=== PATIENT | female | born 1960 | race Caucasian/White ===

== ENCOUNTER → 2016-10-01 | Outpatient (CLI) | payer MEDICARE ==
[~2016-10-01] MED LIST: ARTHROTEC 775 MG/TAB PO; CYMBALTA 20MG20 MG PO; CYMBALTA 30MG30 MG PO; DARVOCET N; FLEXERIL; FLEXERIL 1010 MG/TAB PO; FLEXERIL5 MG PO; IBUPROFEN 200200 MG PO; LORTAB 7.5/5001 TAB; MOTRIN 800800 MG/TAB PO; NORCO 325 MG-51 TAB PO; NORCO PO; PERCOCET 325 MG1 TA2 PO; PHENERGAN W/CO120 M1 PO; [UNRECOGNIZED DRUG - OTHER]
== END ==
LOC: MC.RAD 09:58
DX: R92.1 Mammographic calcification found on diagnostic imaging of breast (principal)

== ENCOUNTER 2017-02-25 21:15 | Emergency (ER) | payer MEDICARE ==
[~2017-02-25] VITALS: Ht 157.5 cm; Wt 69.5 kg
[2017-02-25 21:18] VITALS: BP 141/74; TEMP 98.1
[2017-02-25] MEDS ORDERED: WELLBUTRIN SR150 M1 PO (21:23)
[2017-02-25 22:33] VITALS: PULSE 89
== END 2017-02-25 22:34 | disposition home or self-care (01) ==
LOC: COL.ER 21:15
DX: S39.012A Strain of muscle, fascia and tendon of lower back, initial encounter (principal); F32.9 Major depressive disorder, single episode, unspecified; F17.210 Nicotine dependence, cigarettes, uncomplicated; X50.0XXA Overexertion from strenuous movement or load, initial encounter

== ENCOUNTER 2017-07-03 17:48 | Emergency (ER) | payer MEDICARE ==
[~2017-07-03] VITALS: Ht 157.5 cm; Wt 69.5 kg
[~2017-07-03 17:48] MED LIST changes: +CEPHALEXIN500 M1 PO; +WELLBUTRIN SR150 M1 PO
[2017-07-03 17:51] VITALS: BP 132/68; TEMP 100.4
[2017-07-03] MEDS ORDERED: TAMIFLU 75MG75 MG PO (19:11)
[2017-07-03 19:26] VITALS: PULSE 110
== END 2017-07-03 19:26 | disposition home or self-care (01) ==
LOC: COL.ER 17:48
DX: J11.1 Influenza due to unidentified influenza virus with other respiratory manifestations (principal); F17.210 Nicotine dependence, cigarettes, uncomplicated

== ENCOUNTER → 2018-01-14 | Outpatient (CLI) | payer MEDICARE ==
[~2018-01-14] MED LIST changes: +TAMIFLU 75MG75 MG PO
== END ==
LOC: MC.RAD 08:58
DX: Z12.31 Encounter for screening mammogram for malignant neoplasm of breast (principal)

== ENCOUNTER 2019-01-01 15:33 | Emergency (ER) | payer MEDICARE ==
[~2019-01-01] VITALS: Ht 157.5 cm; Wt 72.7 kg
[2019-01-01 15:37] VITALS: TEMP 97.8
[2019-01-01 16:02] LABS: COLLECTION METHOD CLEAN CATCH
[2019-01-01 16:13] LABS: PH 5 (5-8); URINE APPEARANCE Cloudy; URINE BACTERIA Rare /hpf; URINE BILIRUBIN Negative (NEGATIVE); URINE BLOOD 3+ (NEGATIVE); URINE COLOR Yellow; URINE GLUCOSE Negative (NEGATIVE); URINE KETONE Negative (NEGATIVE); URINE LEUKOCYTE ESTERASE 2+ (NEGATIVE); URINE NITRATE Positive (NEGATIVE); URINE PROTEIN(semi-quant) 2+ (NEGATIVE); URINE RBC >50 /hpf; URINE UROBILINOGEN Negative (NEGATIVE)
[2019-01-01] MEDS ORDERED: DIFLUCAN150 MG PO (16:14)
[2019-01-01] MEDS ORDERED: CEFTIN500 MG PO (16:33)
[2019-01-01] MEDS ORDERED: PYRIDIUM200 M1 PO (16:33)
[2019-01-01 18:00] VITALS: BP 120/81; PULSE 74
== END 2019-01-01 18:00 | disposition home or self-care (01) ==
LOC: COL.ER 15:33
PROVIDERS: Emergency Medicine
DX: N30.90 Cystitis, unspecified without hematuria (principal); F17.210 Nicotine dependence, cigarettes, uncomplicated
CPT/HCPCS: J0696

== ENCOUNTER 2021-07-16 08:30 | Day surgery (SDC) | payer MEDICARE ==
[~2021-07-16] VITALS: Ht 157.5 cm; Wt 76.5 kg
[~2021-07-16 08:30] MED LIST changes: +CEFTIN500 MG PO; +DIFLUCAN150 MG PO; +PYRIDIUM200 M1 PO
[2021-07-16] MEDS ORDERED: PREMARIN VAG42.5 GM VG (08:49)
[2021-07-16 08:50] VITALS: BP 132/87; PULSE 82; TEMP 97.4
--- NOTE | 2021-07-16 10:07 | NUR ---
PATIENT TRANSPORTED PER CART FROM GI SUITE TO BAY 4 ACCOMPANIED BY ENDO RN. PATIENT AMBULATED FROM CART TO CHAIR WITH STEADY GAIT AND 2 ASSIST. MONITORS APPLIED. VSS ON ROOM AIR. PATIENT FAMILY IN ROOM. PATIENT TALKS WITH FAMILY. VERBAL REPORT RECEIVED.
[2021-07-16 10:15] VITALS: BP 116/67; PULSE 73
--- NOTE | 2021-07-16 10:15 | NUR ---
VSS ON ROOM AIR. PATIENT TOLERATES COFFEE AND MUFFIN WITHOUT PROBLEMS. PATIENT DENIES DISCOMFORT AND NAUSEA. DR HARTMAN SPEAKS WITH PATEINT AND FAMILY MEMBER
[2021-07-16 10:30] VITALS: BP 98/58; PULSE 72
--- NOTE | 2021-07-16 10:30 | NUR ---
VSS ON ROOM AIR. PATIENT TALKS WITH FAMILY MEMBER. DENIES DISCOMFORT AND NAUSEA.,
[2021-07-16 10:39] VITALS: TEMP 97.1
[2021-07-16 10:45] VITALS: BP 101/64; PULSE 79
--- NOTE | 2021-07-16 10:45 | NUR ---
VSS ON ROOM AIR. PATEINT STATES SHE IS READY TO GO HOME. 1035 IV DC'D WITH CATHETER TIP INTACT. PRESSURE AND BANDAGE APPLIED. 1038 DISCHARGE INSTRUCTIONS GIVEN VERBAL AND DISCHARGE PACKET PROVIDED. QUESTIONS ANSWERED AND PATIENT VOICED UNDERSTANDING. PATIENT CHANGES INTO STREET CLOTHES. 1045 PATIENT DISCHARGED PER WHEEL CHAIR ACCOMPANIED BY AMB RN TO PRIVATE VECHILE DRIVEN BY FAMILY MEMBER.
== END 2021-07-16 10:45 | disposition home or self-care (01) ==
LOC: SDCO 08:30
DX: Z12.11 Encounter for screening for malignant neoplasm of colon (principal); K57.30 Diverticulosis of large intestine without perforation or abscess without bleeding; K64.1 Second degree hemorrhoids
CPT/HCPCS: J2405; J2704; J7120

== ENCOUNTER → 2021-08-19 | Outpatient (CLI) | payer MEDICARE ==
[~2021-08-19] MED LIST changes: +PREMARIN VAG42.5 GM VG
== END ==
LOC: MC.RAD 10:00
DX: Z12.31 Encounter for screening mammogram for malignant neoplasm of breast (principal)

== ENCOUNTER 2023-05-21 15:30 | Emergency (ER) | payer MEDICARE ==
[~2023-05-21] VITALS: Ht 157.5 cm; Wt 75.0 kg
[2023-05-21 15:36] VITALS: TEMP 97.7
[2023-05-21 16:02] LABS: BASO % 0.4 % (0.0-2.0); EOS # 0.3 K/mm3 (0.0-0.7); EOS % 2.9 % (0.0-4.0); GRAN # 5.6 K/mm3 (1.4-6.5); GRAN % 61.7 % (42.2-75.2); HEMATOCRIT 43.8 % (37.0-47.0); HEMOGLOBIN 14.3 g/dl (12.5-16.0); LYMPH # 2.5 K/mm3 (1.2-3.4); LYMPH % 27.3 % (20.0-51.0); MEAN CELL VOLUME 94 fl (80.0-100.0); MEAN CORPUSCULAR HEMOGLOBIN 31 pg (27-31); MEAN CORPUSCULAR HGB CONC 33 g/dl (33.0-37.0); MEAN PLATELET VOLUME 9.2 fl (7.4-10.4); MONO # 0.7 K/mm3 (0.1-0.6); MONO % 7.5 % (1.7-9.3); PLATELET COUNT 264 K/mm3 (130-400); RED BLOOD COUNT 4.68 M/mm3 (4.10-5.30); REDCELL DISTRIBUTION WIDTH-CV 12.9 % (11.5-14.5)
[2023-05-21 16:09] LABS: ALBUMIN 3.7 gm/dL (3.4-4.8); BILIRUBIN,TOTAL 0.4 mg/dL (0.2-1.2); CALCIUM 9.4 mg/dL (8.4-10.2); CREATININE, serum 0.81 mg/dL (0.57-1.11); POTASSIUM 4.1 mmol/L (3.5-4.5); TOTAL PROTEIN 7.2 gm/dL (6.2-8.1)
[2023-05-21 16:38] LABS: COLLECTION METHOD CLEAN CATCH
[2023-05-21 17:35] LABS: URINE APPEARANCE Hazy (CLEAR/HAZY); URINE BLOOD 3+ (NEGATIVE); URINE COLOR Yellow (YELLOW); URINE GLUCOSE Negative (NEGATIVE); URINE KETONE Negative (NEGATIVE); URINE NITRATE Negative (NEGATIVE); URINE PROTEIN(semi-quant) Negative (NEGATIVE); URINE UROBILINOGEN 0.2 E.U/dL (0.2-1.0)
[2023-05-21] MEDS ORDERED: CEPHALEXIN500 M1 PO (18:06)
[2023-05-21] MEDS ORDERED: NORCO 325 MG-51 TAB PO (18:06)
[2023-05-21 18:11] LABS: SQUAMOUS EPITHELIAL 0-2 /hpf (0-10)
[2023-05-21 18:20] VITALS: BP 139/86; PULSE 78
== END 2023-05-21 18:20 | disposition home or self-care (01) ==
LOC: COL.ER 15:30
PROVIDERS: Personal Emergency Response Attendant
DX: R31.9 Hematuria, unspecified (principal); R10.9 Unspecified abdominal pain; F17.290 Nicotine dependence, other tobacco product, uncomplicated; Z96.0 Presence of urogenital implants; Z88.0 Allergy status to penicillin
CPT/HCPCS: J7030; Q9967

== ENCOUNTER → 2023-09-07 | Outpatient (CLI) | payer MEDICARE | LOC: MC.RAD 11:03 | DX: Z12.31 Encounter for screening mammogram for malignant neoplasm of breast (principal) ==